=== PATIENT | female | born 1970 | race Caucasian/White ===

== ENCOUNTER 2025-03-14 15:19 | Emergency (ER) | payer MEDICARE ==
[~2025-03-14] VITALS: Ht 167.6 cm; Wt 77.1 kg
[2025-03-14] MEDS ORDERED: NS 1,000 ML IV SCH (15:40)
[2025-03-14] MEDS ORDERED: Morphine Sulfate 4 MG/1 ML Injection IV ONE (15:40)
[2025-03-14 15:45] LABS: BASOPHILS ABSOLUTE AUTO 0.04 K/mm3 (0.00-0.23); BASOPHILS PERCENT AUTO 1 % (0-2); EOSINOPHILS ABSOLUTE AUTO 0.16 K/mm3 (0.00-0.68); EOSINOPHILS PERCENT AUTO 2 % (0-6); Hematocrit 37.6 % (33.0-51.0); Hemoglobin 12.6 g/dL (11.5-16.0); IMMATURE GRAN ABSOLUTE AUTO 0.02 K/mm3 (0.00-0.10); IMMATURE GRAN PERCENT AUTO 0 % (0-1); LYMPHOCYTES ABSOLUTE AUTO 0.64 K/mm3 (0.84-5.20); LYMPHOCYTES PERCENT AUTO 7 % (21-46); MONOCYTES ABSOLUTE AUTO 0.83 K/mm3 (0.16-1.47); MONOCYTES PERCENT AUTO 10 % (4-13); Mean Corpuscular HGB Conc 33.5 g/dL (31.5-36.5); Mean Corpuscular Volume 87 fL (80-100); NEUTROPHILS ABSOLUTE AUTO 7.07 K/mm3 (1.96-9.15); NEUTROPHILS PERCENT AUTO 81 % (41-73); NRBC ABSOLUTE 0.00 K/mm3 (0.00-0.02); NRBC Auto 0.0 /100 WBC (0.0-0.2); Platelet Count 239 K/mm3 (150-400); RDW Coefficient Variation 17.3 % (11.7-14.2); RDW Standard Deviation 55.3 fL (35.1-46.3)
[2025-03-14 16:04] LABS: Alanine Aminotransfer (ALT/SGP 20.0 U/L (12-78); Albumin, Blood 3.8 g/dL (3.4-5.0); Albumin/Globulin Ratio 1.0 (0.8-1.8); Anion Gap 10.0 mmol/L (3-11); Aspartate Aminotrans (AST/SGOT 18.0 U/L (12-37); Bilirubin, Total 0.3 mg/dL (0.1-1.0); Blood Urea Nitrogen 10.0 mg/dL (8-24); CO2, Blood 24.0 mmol/L (21-32); Calcium, Blood 8.7 mg/dL (8.5-10.1); Chloride, Blood 104.0 mmol/L (98-108); Creatinine, Blood 0.72 mg/dL (0.40-1.00); Globulin, Blood 3.8 g/dL (2.2-4.0); Glucose, Blood 94.0 mg/dL (70-99); Potassium, Blood 3.5 mmol/L (3.5-5.5); Sodium, Blood 134.0 mmol/L (136-145); Total Protein, Blood 7.6 g/dL (6.4-8.2)
[2025-03-14] MEDS ORDERED: LOSA25 (17:16)
[2025-03-14] MEDS ORDERED: PROG100 (17:16)
[2025-03-14] MEDS ORDERED: ATEN25 (17:16)
[2025-03-14] MEDS ORDERED: Pantoprazole Sodium 40 MG Injection IV ONE (18:40)
[2025-03-14] MEDS ORDERED: PANT40 PO (19:51)
[2025-03-14] MEDS ORDERED: ONDA4ODT MM (19:51)
== END 2025-03-14 20:08 | disposition home or self-care (01) ==
LOC: ER 15:19
PROVIDERS: Emergency Medicine
DX: R10.13 Epigastric pain (principal); R51.9 Headache, unspecified; R00.0 Tachycardia, unspecified; Z79.899 Other long term (current) drug therapy; I10 Essential (primary) hypertension
CPT/HCPCS: 71046; 80053; 83880; 84484; 85025; 93005; 93010; 96361; 96374; 96375; 99284-25; A9270; J2270; J2470; J7030

== ENCOUNTER 2025-07-03 22:54 | Emergency (ER) | payer MEDICARE, OTHER ==
[~2025-07-03] VITALS: Ht 167.6 cm; Wt 79.4 kg
[~2025-07-03 22:54] MED LIST: ATEN25; LOSA25; ONDA4ODT MM; PANT40 PO; PROG100
== END 2025-07-04 01:17 | disposition home or self-care (01) ==
LOC: ER 22:54
DX: M26.602 Left temporomandibular joint disorder, unspecified (principal); I10 Essential (primary) hypertension; Z79.899 Other long term (current) drug therapy
CPT/HCPCS: 99282